=== PATIENT | male | born 1960 | race Caucasian/White ===

== ENCOUNTER 2016-08-27 05:48 | Inpatient (IN) | payer OTHER ==
--- NOTE | ~2016-08-27 | OR ---
Unit #: [id number] #: [id number] Patient: DANIELLE ESCOBEDO [id number] [address] [place], [place] [address] [id number] MR#: [id number] NAME: DANIELLE ESCOBEDO ROOM: [facility] Date of Procedure: 08/27/2016 Admission Date: 08/27/2016 Surgeon: Bishnu Jackman M.D. : 1960 Attending Physician: Bishnu Jackman M.D. Primary Care Physician: Angus Foley M.D. OPERATIVE REPORT PREOPERATIVE DIAGNOSIS Primary localized osteoarthritis of the left knee. POSTOPERATIVE DIAGNOSIS Primary localized osteoarthritis of the left knee. PROCEDURE PERFORMED Left total knee. ASSISTANTS Tien and Tho. ANESTHESIA Adductor canal block plus general. ESTIMATED BLOOD LOSS 100 mL. INDICATIONS FOR PROCEDURE This is a 56-year-old gentleman with severe pain in his left knee. He has had pain for months and has gotten progressively worse. X-rays show he has [id number] with subchondral sclerosis. He has failed injections and anti-inflammatories. He is brought to the operating room today for left total knee. DESCRIPTION OF PROCEDURE The patient was brought to the holding room, given 3 g of Ancef. This will be continued postoperatively per protocol. He was then given an adductor canal block and brought back to the operating room and given general anesthetic. Tourniquet placed around the left thigh. The left leg was prepped and draped in a sterile fashion. Tourniquet was inflated to 300. A straight anterior skin incision was made. The subcutaneous dissected away and a medial arthrotomy performed. Patella was slid to the side. Osteophytes were removed from the femur. Intramedullary guide was used and a 6-degree valgus cut was made on the distal femur. The femur was sized. Using [email or web address] sizing guide, it was found to be a size 8. The anterior-posterior cutting block was applied. Rotation was checked in the knee. Anterior and posterior cuts were made along the chamfer cuts. We then made the trochlear groove cut. Proximal tibial cut was made. It was sized at 7. Any posterior condylar osteophytes were removed. The remaining meniscal fragments were debrided. The posterior capsule and the periosteum were injected with ropivacaine mixture. After this was done, Unit #: [id number] #: [id number] Patient: DANIELLE ESCOBEDO trials were applied. Drill holes were made for lugs on the femoral component. The knee came to full extension with a 5 [address] insert trial in place and it was stable in extension and flexion. The external alignment guide showed appropriate alignment of the limb. Rotation of the tibial tray was marked. The patella was grasped with 2 towel clips and it measured 25 mm thick, cut smooth at 14 and 13 and a 41 patella was the appropriate size. The 3 drill holes were made. Trial patella applied and it tracked properly. We then removed all the trials, used the drill and punch for the tibial tray. The knee was irrigated and dried while the cement was mixed and all 3 components were cemented simultaneously. Once again, it was a size 8 femur, size 7 tibial tray, and a 41 patella from [employer] knee system. The size 8, 5 mm insert placed in the tray. After the cement had hardened, the rest of ropivacaine mixture was injected. The tourniquet was released. Hemostasis obtained. The wound irrigated with Betadine and bacitracin and then closed using 0 Ethibond in the arthrotomy, 0 and 2-0 Vicryl in the subcutaneous, and lashon in the skin. district administrative assistant, Arjun Chauhan was present throughout the entire case. Dictated by... Kesha Gotti/earl TD: 08/27/2016 23:04 JOB #: [id number] OPERATIVE REPORT X Bishnu Jackman MD X PROCEDURE OPERATIVE NOTE
--- NOTE | ~2016-08-27 | DS ---
Unit #: [id number] #: [id number] Patient: DANIELLE ESCOBEDO [id number] [address] [address] [id number] MR#: [id number] NAME: DANIELLE ESCOBEDO ROOM: [facility] Age: 56 Sex: M Admission Date: 08/27/2016 : 1960 Discharge Date: 08/28/2016 Attending Physician: Bishnu Jackman M.D. Primary Care Physician: Angus Foley M.D. DISCHARGE SUMMARY ADMITTING DIAGNOSIS Primary localized osteoarthritis of left knee. DISCHARGE DIAGNOSIS Primary localized osteoarthritis of left knee. PROCEDURE IN HOSPITAL Left total knee. HOSPITAL COURSE The patient was admitted on August 27 and taken to the operating room where he underwent a left total knee replacement. Postoperatively, he was up with therapy the same day. His neurovascular exam is intact. It is felt he could be discharged after therapy this morning as long as he tolerates therapy well. He is weightbearing as tolerated. His hemoglobin this morning is 11.5. His INR is 1.3. He will be discharged on 6 mg of Coumadin daily. Will check his pro times tomorrow and Saturday and adjust his dose. He will have home physical therapy and his condition on discharge is improved. Dictated by... Kesha Gotti/ezra TD: 08/29/2016 10:54 JOB #: [id number] DISCHARGE SUMMARY X Bishnu Jackman MD X DISCHARGE SUMMARY
[~2016-08-27 05:48] MED LIST: BACLOFEN20 M1 PO; DILAUDID4 M1 PO; DULOXETINE HCL60 M1; FLOMAX0.4 MG PO; LISINOPRIL20 MG PO; PERCOCET5/325 PO; ROXICODONE30 M1 PO; [UNRECOGNIZED DRUG - OTHER] EPI
[2016-08-27 06:44] LABS: PROTHROMBIN TIME (PATIENT) 10.9 SECONDS (9.6-11.5)
[2016-08-28 03:25] LABS: HEMATOCRIT 34.8 % (38.0-50.0); HEMOGLOBIN 11.5 gm/dL (13.0-16.0)
[2016-08-28 03:44] LABS: INR 1.3; PROTHROMBIN TIME (PATIENT) 13.5 SECONDS (9.6-11.5)
[2016-08-28 03:47] LABS: BLOOD UREA NITROGEN 13 mg/dL (9-23); BUN/CREATININE RATIO 16.25; CALCIUM SERUM 8.5 mg/dL (8.4-10.2); CARBON DIOXIDE 30 mmol/L (22-31); CHLORIDE 104 mmol/L (100-111); CREATININE SERUM 0.8 mg/dL (0.6-1.4); GLOM FILT RATE Estimated ABOVE60 mL/min (>60); GLUCOSE FASTING 121 mg/dL (70-110); MAGNESIUM 1.8 mg/dL (1.6-3.0); POTASSIUM 4.1 mmol/L (3.5-5.1); SODIUM 138 mmol/L (135-145)
[2016-08-28] MEDS ORDERED: PERCOCET 10/3251 TAB PO (10:51)
[2016-08-28] MEDS ORDERED: COUMADIN6 MG PO (10:52)
== END 2016-08-28 11:33 | disposition home health service (06) | DRG 470 ==
LOC: CSUR 05:48 → CPACUOF 06:15 → C4B 10:10
PROVIDERS: Nurse Practitioner; Orthopaedic Surgery
PROC: 0SRD0J9 Replacement of Left Knee Joint with Synthetic Substitute, Cemented, Open Approach (ICD-10-PCS; principal; 2016-08-27 07:00)
DX: M17.12 Unilateral primary osteoarthritis, left knee (principal); D62 Acute posthemorrhagic anemia; I10 Essential (primary) hypertension; F32.9 Major depressive disorder, single episode, unspecified; E66.9 Obesity, unspecified; Z68.34 Body mass index [BMI] 34.0-34.9, adult; G47.30 Sleep apnea, unspecified; Z87.442 Personal history of urinary calculi; R73.9 Hyperglycemia, unspecified; T38.0X5A Adverse effect of glucocorticoids and synthetic analogues, initial encounter
CPT/HCPCS: 80048; 83735; 85014; 85018; 85610; 94010; 94761; 97110; 97116; 97162; 97530; C1776; G8978-GP; G8979-GP; G8980-GP; G8988-GP; G8989-GP; J0131; J0171; J0690; J0735; J1100; J1170; J1650; J1885; J2250; J2405; J2795; J3010